=== PATIENT | male | born 1935 | race African-American/Black ===

== ENCOUNTER 2018-02-27 18:50 | Emergency (ER) | payer MEDICARE, OTHER ==
[2018-02-27 19:23] LABS: #Basophils 0.1 thou/uL (0.0-0.2); #Eosinphils 0.2 thou/uL (0.0-0.7); #Lymphocytes 1.6 thou/uL (1.20-3.40); #Monocytes 0.7 thou/uL (0.11-0.59); %Eosinophils 2.8 % (0.0-10.0); %Lymphocytes 24.3 % (21.0-51.0); %Monocytes 10.3 % (0.0-10.0); %Neutrophils 61.6 % (42.0-75.0); Hemoglobin 10.5 g/dL (14.0-18.0); Mean Corpuscular Hemoglobin 27.8 pg (27.0-31.0); Mean Corpuscular Volume 81.6 fL (78.0-98.0); Mean Platelet Volume 6.1 fL (7.4-10.4); Platelet Count 168 thou/uL (130-400); RBC Distribution Width 15.3 % (11.5-14.5); Red Blood Cell (RBC) Count 3.78 mill/uL (4.70-6.10); White Blood Cell (WBC) Count 6.5 thou/uL (4.8-10.8)
[2018-02-27 19:29] LABS: INR-International Normal Ratio 2.1; PTT 41.4 SEC (22.9-36.1); Prothrombin Time 24.4 SEC (12.0-14.7)
== END 2018-02-27 19:40 | disposition home or self-care (01) ==
LOC: BURERS 18:50
DX: D68.9 Coagulation defect, unspecified (principal); R58 Hemorrhage, not elsewhere classified; I10 Essential (primary) hypertension; Z79.01 Long term (current) use of anticoagulants; Z79.899 Other long term (current) drug therapy
CPT/HCPCS: 36415; 85025; 85610; 85730; 99283

== ENCOUNTER 2019-03-29 15:55 | Emergency (ER) | payer MEDICARE, OTHER ==
[2019-03-29 16:41] LABS: #Basophils 0.1 thou/uL (0.0-0.2); #Eosinphils 0.1 thou/uL (0.0-0.7); #Lymphocytes 1.7 thou/uL (1.20-3.40); #Monocytes 0.8 thou/uL (0.11-0.59); #Neutrophils 4.7 thou/uL (1.40-6.50); %Basophils 0.8 % (0.0-1.0); %Eosinophils 1.2 % (0.0-10.0); %Lymphocytes 22.7 % (21.0-51.0); %Monocytes 11.1 % (0.0-10.0); %Neutrophils 64.2 % (42.0-75.0); Mean Corpuscular HGB CONC 30.8 g/dL (32.0-36.0); Mean Corpuscular Hemoglobin 27.7 pg (27.0-31.0); Mean Corpuscular Volume 89.8 fL (78.0-98.0); Mean Platelet Volume 5.7 fL (7.4-10.4); Platelet Count 225 thou/uL (130-400); RBC Distribution Width 15.7 % (11.5-14.5); Red Blood Cell (RBC) Count 4.34 mill/uL (4.70-6.10); White Blood Cell (WBC) Count 7.4 thou/uL (4.8-10.8)
[2019-03-29 16:57] LABS: ALT (SGPT) 32 U/L (8-55); AST (SGOT) 27 U/L (5-34); Albumin 3.8 g/dL (3.4-4.8); Alkaline Phosphatase 89 U/L (40-150); Anion Gap 14 mmol/L (10-20); BUN (Urea Nitrogen) 38 mg/dL (8.4-25.7); Bilirubin, Total 0.4 mg/dL (0.2-1.2); Calc. Creatinine Clearance 0 mL/min (70-130); Calcium 9.3 mg/dL (7.8-10.44); Carbon Dioxide 30 mmol/L (23-31); Chloride 102 mmol/L (98-107); Estimated GFR-MDRD 26; Globulin 3.1 g/dL (2.4-3.5); Glucose 93 mg/dL (83-110); Potassium 4.1 mmol/L (3.5-5.1); Protein, Total 6.9 g/dL (5.8-8.1); Sodium 142 mmol/L (136-145)
--- NOTE | 2019-03-29 17:34 | CT ---
CT HEAD WITHOUT CONTRAST: 03/29/19 INDICATIONS: Fall. Lightheadedness. COMPARISON: 02/07/15. There is moderate cortical volume loss which appears stable. Mild to moderate chronic is chemic white matter changes. No evidence of hemorrhage. No evidence of infarct or mass. IMPRESSION: No acute process. POS: OFF
[2019-03-29 17:51] LABS: Bilirubin Negative (Negative); Blood, Urine Negative (Negative); Clarity Clear (Clear); Glucose, Urine (Dipstick) Negative (Negative); Leukocyte Negative (Negative); Nitrite Negative (Negative); Protein, Urine (Dipstick) Negative (Neg-Trace); Urobilinogen 0.2 mg/dL (Less than 2)
== END 2019-03-29 18:11 | disposition home or self-care (01) ==
LOC: BURERS 15:55
DX: I95.1 Orthostatic hypotension (principal); N18.9 Chronic kidney disease, unspecified; I48.91 Unspecified atrial fibrillation; M10.9 Gout, unspecified; I10 Essential (primary) hypertension; E78.5 Hyperlipidemia, unspecified; Z79.899 Other long term (current) drug therapy
CPT/HCPCS: 36415; 70450; 80053; 81003; 84484; 85025

== ENCOUNTER 2019-04-19 06:50 | Emergency (ER) | payer MEDICARE, OTHER ==
--- NOTE | 2019-04-19 07:55 | CT ---
CT HEAD WITHOUT CONTRAST: INDICATION: Headache. COMPARISON: 03/29/2019 CT head. FINDINGS: Mild cortical volume loss again noted. Mild chronic ischemic white matter changes appear stable. No evidence of mass or hemorrhage. No evidence of acute cortical infarct. No interval change. Sinuse s are clear. IMPRESSION: No acute finding. POS: [facility]
== END 2019-04-19 07:49 | disposition home or self-care (01) ==
LOC: BURERS 06:50
DX: R51 Headache (principal); I10 Essential (primary) hypertension; I48.91 Unspecified atrial fibrillation; E78.2 Mixed hyperlipidemia; M10.9 Gout, unspecified; Z79.899 Other long term (current) drug therapy; Z79.01 Long term (current) use of anticoagulants
CPT/HCPCS: 70450

== ENCOUNTER 2019-07-15 16:15 | Emergency (ER) | payer MEDICARE, OTHER | END 2019-07-15 16:42 | disposition home or self-care (01) | LOC: BURERS 16:15 | DX: M10.9 Gout, unspecified (principal); I48.91 Unspecified atrial fibrillation; E78.5 Hyperlipidemia, unspecified; E78.1 Pure hyperglyceridemia; I47.1 Supraventricular tachycardia; E78.00 Pure hypercholesterolemia, unspecified; Z79.899 Other long term (current) drug therapy; Z79.82 Long term (current) use of aspirin | CPT/HCPCS: 99283 ==

== ENCOUNTER 2019-10-17 14:11 | Emergency (ER) | payer MEDICARE, OTHER ==
[2019-10-17] MEDS ORDERED: Ibuprofen 200 MG TAB ONE (14:28)
[2019-10-17] MEDS ORDERED: predniSONE 20 MG TAB ONE (14:28)
== END 2019-10-17 14:35 | disposition home or self-care (01) ==
LOC: BURERS 14:11
DX: M10.9 Gout, unspecified (principal); J06.9 Acute upper respiratory infection, unspecified; I49.9 Cardiac arrhythmia, unspecified; I48.91 Unspecified atrial fibrillation; E78.2 Mixed hyperlipidemia; I10 Essential (primary) hypertension; Z79.899 Other long term (current) drug therapy; Z79.82 Long term (current) use of aspirin
CPT/HCPCS: 99283; J7512

== ENCOUNTER 2021-03-07 23:58 | Emergency (ER) | payer MEDICARE, OTHER | END 2021-03-08 00:31 | disposition home or self-care (01) | LOC: BURERS 23:58 | DX: M79.81 Nontraumatic hematoma of soft tissue (principal); I49.9 Cardiac arrhythmia, unspecified; I48.91 Unspecified atrial fibrillation; E78.2 Mixed hyperlipidemia; I10 Essential (primary) hypertension; M10.9 Gout, unspecified; Z79.899 Other long term (current) drug therapy | CPT/HCPCS: 99283 ==

== ENCOUNTER 2022-01-06 08:34 | Emergency (ER) | payer MEDICARE, OTHER ==
[2022-01-06] MEDS ORDERED: Furosemide 100 MG/10 ML VIAL ONE (08:59)
[2022-01-06 09:06] LABS: #Basophils 0.1 thou/uL (0.0-0.2); #Eosinphils 0.2 thou/uL (0.0-0.7); #Lymphocytes 1.1 thou/uL (1.20-3.40); #Monocytes 0.9 thou/uL (0.11-0.59); #Neutrophils 4.7 thou/uL (1.40-6.50); %Basophils 0.7 % (0.0-1.0); %Eosinophils 2.7 % (0.0-10.0); %Lymphocytes 16.1 % (21.0-51.0); %Monocytes 12.9 % (0.0-10.0); %Neutrophils 67.6 % (42.0-75.0); Hemoglobin 9.7 g/dL (14.0-18.0); Mean Corpuscular HGB CONC 31.5 g/dL (32.0-36.0); Mean Corpuscular Hemoglobin 26.8 pg (27.0-31.0); Mean Platelet Volume 6.8 fL (7.4-10.4); Platelet Count 179 thou/uL (130-400); RBC Distribution Width 15.4 % (11.5-14.5); Red Blood Cell (RBC) Count 3.61 mill/uL (4.70-6.10)
[2022-01-06 09:24] LABS: ALT (SGPT) 21 U/L (8-55); AST (SGOT) 29 U/L (5-34); Albumin 3.9 g/dL (3.4-4.8); Alkaline Phosphatase 154 U/L (40-110); Anion Gap 15 mmol/L (10-20); BUN (Urea Nitrogen) 43 mg/dL (8.4-25.7); Bilirubin, Total 0.6 mg/dL (0.2-1.2); CK (CPK) 177 U/L (30-200); Calc. Creatinine Clearance 0 mL/min (70-130); Calcium 8.8 mg/dL (7.8-10.44); Carbon Dioxide 24 mmol/L (23-31); Chloride 107 mmol/L (98-107); Globulin 3.2 g/dL (2.4-3.5); Glucose 119 mg/dL (83-110); Potassium 4.5 mmol/L (3.5-5.1); Protein, Total 7.1 g/dL (5.8-8.1); Sodium 141 mmol/L (136-145)
== END 2022-01-06 11:45 | disposition short-term general hospital (02) ==
LOC: BURERS 08:34
DX: I11.0 Hypertensive heart disease with heart failure (principal); I50.9 Heart failure, unspecified; N17.9 Acute kidney failure, unspecified; I48.91 Unspecified atrial fibrillation; E78.2 Mixed hyperlipidemia; M10.9 Gout, unspecified; Z79.01 Long term (current) use of anticoagulants; Z79.899 Other long term (current) drug therapy
CPT/HCPCS: 71045; 80053; 82550; 83880; 84484; 85025; 93005; 94760; 96374; J1940

== ENCOUNTER 2022-01-14 20:31 | Emergency (ER) | payer MEDICARE, OTHER ==
[2022-01-14 20:57] LABS: #Basophils 0.1 thou/uL (0.0-0.2); #Eosinphils 0.2 thou/uL (0.0-0.7); #Lymphocytes 1.1 thou/uL (1.20-3.40); #Monocytes 0.7 thou/uL (0.11-0.59); #Neutrophils 3.9 thou/uL (1.40-6.50); %Eosinophils 2.8 % (0.0-10.0); %Lymphocytes 17.9 % (21.0-51.0); %Monocytes 11.9 % (0.0-10.0); %Neutrophils 66.4 % (42.0-75.0); Hemoglobin 8.9 g/dL (14.0-18.0); Mean Corpuscular HGB CONC 31.8 g/dL (32.0-36.0); Mean Corpuscular Hemoglobin 26.8 pg (27.0-31.0); Mean Corpuscular Volume 84.1 fL (78.0-98.0); Mean Platelet Volume 7.9 fL (7.4-10.4); Platelet Count 142 thou/uL (130-400); RBC Distribution Width 15.3 % (11.5-14.5); Red Blood Cell (RBC) Count 3.32 mill/uL (4.70-6.10); White Blood Cell (WBC) Count 5.9 thou/uL (4.8-10.8)
[2022-01-14 21:10] LABS: ALT (SGPT) 24 U/L (8-55); AST (SGOT) 30 U/L (5-34); Albumin 3.9 g/dL (3.4-4.8); Alkaline Phosphatase 122 U/L (40-110); Anion Gap 16 mmol/L (10-20); BUN (Urea Nitrogen) 40 mg/dL (8.4-25.7); Bilirubin, Total 0.7 mg/dL (0.2-1.2); Calc. Creatinine Clearance 0 mL/min (70-130); Calcium 8.7 mg/dL (7.8-10.44); Carbon Dioxide 27 mmol/L (23-31); Chloride 104 mmol/L (98-107); Globulin 3.4 g/dL (2.4-3.5); Glucose 120 mg/dL (83-110); Potassium 4.3 mmol/L (3.5-5.1); Protein, Total 7.3 g/dL (5.8-8.1); Sodium 143 mmol/L (136-145)
[2022-01-14] MEDS ORDERED: Furosemide 40 MG/4 ML VIAL ONE (21:30)
[2022-01-15 15:09] LABS: SARS-CoV-2 PCR by NAA Not Detected (NotDetected)
== END 2022-01-14 23:55 | disposition short-term general hospital (02) ==
LOC: BURERS 20:31
DX: I11.0 Hypertensive heart disease with heart failure (principal); I50.9 Heart failure, unspecified; I48.91 Unspecified atrial fibrillation; E78.2 Mixed hyperlipidemia; M10.9 Gout, unspecified; Z20.822 Contact with and (suspected) exposure to COVID-19; Z95.0 Presence of cardiac pacemaker; Z79.899 Other long term (current) drug therapy
CPT/HCPCS: 71045; 80053; 83880; 84484 ×2; 85025; 93005; 94760; 96374; 99285; U0003; U0005; 36415; J1940

== ENCOUNTER 2022-03-21 20:59 | Emergency (ER) | payer OTHER, MEDICARE | END 2022-03-21 22:20 | disposition home or self-care (01) | LOC: BURERS 20:59 | DX: S80.02XA Contusion of left knee, initial encounter (principal); E78.5 Hyperlipidemia, unspecified; I10 Essential (primary) hypertension; W19.XXXA Unspecified fall, initial encounter ==

== ENCOUNTER 2022-11-17 11:57 | Emergency (ER) | payer MEDICARE, OTHER ==
[2022-11-17 13:18] LABS: Hemoglobin 11.3 g/dL (14.0-18.0); Mean Corpuscular HGB CONC 32.4 g/dL (32.0-36.0); Mean Corpuscular Volume 83.3 fl (78.0-98.0); Mean Platelet Volume 7.5 fL (7.4-10.4); Platelet Count 142 10x3/uL (130-400); RBC Distribution Width 17.9 % (11.5-14.5); White Blood Cell (WBC) Count 8.7 10x3/uL (4.8-10.8)
[2022-11-17 13:19] LABS: ALT (SGPT) 34 U/L (8-55); AST (SGOT) 52 U/L (5-34); Albumin 3.6 g/dL (3.4-4.8); Alkaline Phosphatase 222 U/L (40-110); Anion Gap 13 mmol/L (10-20); BUN (Urea Nitrogen) 48 mg/dL (8.4-25.7); Bilirubin, Total 1.1 mg/dL (0.2-1.2); Calc. Creatinine Clearance 0 mL/min (70-130); Calcium 8.8 mg/dL (7.8-10.44); Carbon Dioxide 27 mmol/L (23-31); Chloride 104 mmol/L (98-107); Estimated GFR 26; Globulin 3.7 g/dL (2.4-3.5); Glucose 131 mg/dL (83-110); Potassium 3.9 mmol/L (3.5-5.1); Protein, Total 7.3 g/dL (5.8-8.1); Sodium 140 mmol/L (136-145)
[2022-11-17 13:34] LABS: Band 1 % (5-11); Lymphocytes 5 % (21-51); MDiff Complete? YES; Monocytes 14 % (0-10); Neutrophil 77 % (42-75); Reactive Lymphocytes 3 % (0-10)
[2022-11-17] MEDS ORDERED: Lidocaine 1% (PF) 30 ML VIAL ONE (14:00)
[2022-11-17] MEDS ORDERED: Clindamycin 150 MG CAP ONE (14:11)
== END 2022-11-17 14:14 | disposition home or self-care (01) ==
LOC: BURERS 11:57
DX: L03.113 Cellulitis of right upper limb (principal); I48.91 Unspecified atrial fibrillation; E78.2 Mixed hyperlipidemia; I10 Essential (primary) hypertension; M10.9 Gout, unspecified; Z79.899 Other long term (current) drug therapy
CPT/HCPCS: 36415; 80053; 85025; 86140; J2001

== ENCOUNTER 2023-01-16 03:14 | Emergency (ER) | payer MEDICARE, OTHER ==
[2023-01-16] MEDS ORDERED: Dexamethasone 10 MG/ML VIAL ONE (03:44)
== END 2023-01-16 04:11 | disposition home or self-care (01) ==
LOC: BURERS 03:14
DX: M10.9 Gout, unspecified (principal); E78.2 Mixed hyperlipidemia; I10 Essential (primary) hypertension; Z87.891 Personal history of nicotine dependence; Z79.899 Other long term (current) drug therapy
CPT/HCPCS: 96372; 99283; J1100

== ENCOUNTER 2023-07-01 07:48 | Emergency (ER) | payer MEDICARE, OTHER ==
[2023-07-01] MEDS ORDERED: predniSONE 20 MG TAB ONE (08:31)
== END 2023-07-01 08:37 | disposition home or self-care (01) ==
LOC: BURERS 07:48
DX: M10.9 Gout, unspecified (principal); I48.91 Unspecified atrial fibrillation; I10 Essential (primary) hypertension; E78.2 Mixed hyperlipidemia; Z95.0 Presence of cardiac pacemaker; Z79.899 Other long term (current) drug therapy; Z87.891 Personal history of nicotine dependence
CPT/HCPCS: 99283; J7512

== ENCOUNTER 2023-07-20 10:46 | Emergency (ER) | payer MEDICARE, OTHER ==
[2023-07-20 11:22] LABS: Bilirubin Negative (Negative); Blood, Urine Moderate (Negative); Clarity Cloudy (Clear); Glucose, Urine (Dipstick) Negative (Negative); Ketone, Urine Negative (Negative); Leukocyte Large (Negative); Nitrite Negative (Negative); Protein, Urine (Dipstick) 100 mg/dL (Neg-Trace); pH, Urine 5.5 (5.0-9.0)
[2023-07-20 11:28] LABS: Bacteria/HPF 1+ HPF (None Seen); CAUTI Indications for Culture Dysuria,urgency,freq; RBC/HPF 21-50 HPF (0-3); WBC/HPF Greater than 50 HPF (0-3)
[2023-07-20 11:30] LABS: Urine Culture Reflex Yes Yes
[2023-07-20 11:33] LABS: #Eosinphils 0.4 thou/uL (0.0-0.7); #Monocytes 0.5 thou/uL (0.11-0.59); #Neutrophils 4.8 thou/uL (1.40-6.50); %Basophils 0.5 % (0.0-1.0); %Eosinophils 6.4 % (0.0-10.0); %Lymphocytes 14.1 % (21.0-51.0); %Monocytes 7.7 % (0.0-10.0); %Neutrophils 71.3 % (42.0-75.0); Hematocrit 32.7 % (42.0-52.0); Hemoglobin 9.9 g/dL (14.0-18.0); Mean Corpuscular HGB CONC 30.3 g/dL (32.0-36.0); Mean Corpuscular Hemoglobin 25.9 pg (27.0-31.0); Mean Corpuscular Volume 85.4 fl (78.0-98.0); Mean Platelet Volume 7.5 fL (7.4-10.4); Platelet Count 141 10x3/uL (130-400); RBC Distribution Width 17.4 % (11.5-14.5); Red Blood Cell (RBC) Count 3.83 mill/uL (4.70-6.10); White Blood Cell (WBC) Count 6.8 10x3/uL (4.8-10.8)
[2023-07-20] MEDS ORDERED: cefTRIAXone (ROCEPHIN) 1 GM VIAL ONE (11:36)
[2023-07-20] MEDS ORDERED: Lidocaine 1% PF 5 ML VIAL ONE (11:36)
[2023-07-20 11:40] LABS: Prothrombin Time 13.8 sec (12.0-14.7)
[2023-07-20 11:50] LABS: ALT (SGPT) 31 U/L (8-55); AST (SGOT) 67 U/L (5-34); Albumin 3.4 g/dL (3.4-4.8); Alkaline Phosphatase 132 U/L (40-110); Anion Gap 17 mmol/L (10-20); BUN (Urea Nitrogen) 50 mg/dL (8.4-25.7); Calc. Creatinine Clearance 0 mL/min (70-130); Calcium 8.5 mg/dL (7.8-10.44); Carbon Dioxide 25 mmol/L (23-31); Chloride 103 mmol/L (98-107); Estimated GFR 13; Globulin 3.7 g/dL (2.4-3.5); Glucose 86 mg/dL (83-110); Potassium 3.9 mmol/L (3.5-5.1); Protein, Total 7.1 g/dL (5.8-8.1); Sodium 141 mmol/L (136-145)
== END 2023-07-20 12:21 | disposition short-term general hospital (02) ==
LOC: BURERS 10:46
DX: N39.0 Urinary tract infection, site not specified (principal); R22.33 Localized swelling, mass and lump, upper limb, bilateral; E78.2 Mixed hyperlipidemia; I10 Essential (primary) hypertension; Z87.891 Personal history of nicotine dependence; Z79.82 Long term (current) use of aspirin; Z79.899 Other long term (current) drug therapy
CPT/HCPCS: 36415; 80053; 81001; 85025; 85610; 87077; 87086; 87186; 96372; 99284; J0696

== ENCOUNTER 2023-08-02 21:08 | Emergency (ER) | payer OTHER, MEDICARE ==
[2023-08-02 22:07] LABS: #Basophils 0.1 thou/uL (0.0-0.2); #Eosinphils 0.4 thou/uL (0.0-0.7); #Lymphocytes 1.6 thou/uL (1.20-3.40); #Monocytes 0.9 thou/uL (0.11-0.59); %Basophils 1.4 % (0.0-1.0); %Eosinophils 5.4 % (0.0-10.0); %Lymphocytes 23.1 % (21.0-51.0); %Monocytes 12.3 % (0.0-10.0); %Neutrophils 57.9 % (42.0-75.0); Hematocrit 33.1 % (42.0-52.0); Hemoglobin 10.3 g/dL (14.0-18.0); Mean Corpuscular HGB CONC 31.1 g/dL (32.0-36.0); Mean Corpuscular Hemoglobin 26.8 pg (27.0-31.0); Mean Corpuscular Volume 86.1 fl (78.0-98.0); Mean Platelet Volume 7.5 fL (7.4-10.4); Platelet Count 193 10x3/uL (130-400); RBC Distribution Width 18.5 % (11.5-14.5); Red Blood Cell (RBC) Count 3.84 mill/uL (4.70-6.10); White Blood Cell (WBC) Count 6.9 10x3/uL (4.8-10.8)
[2023-08-02 22:11] LABS: INR-International Normal Ratio 1.1; Prothrombin Time 14.4 sec (12.0-14.7)
[2023-08-02 22:19] LABS: ALT (SGPT) 19 U/L (8-55); AST (SGOT) 30 U/L (5-34); Albumin 3.1 g/dL (3.4-4.8); Alkaline Phosphatase 111 U/L (40-110); Anion Gap 17 mmol/L (10-20); BUN (Urea Nitrogen) 38 mg/dL (8.4-25.7); Bilirubin, Total 0.7 mg/dL (0.2-1.2); Calc. Creatinine Clearance 0 mL/min (70-130); Calcium 8.3 mg/dL (7.8-10.44); Carbon Dioxide 28 mmol/L (23-31); Chloride 103 mmol/L (98-107); Estimated GFR 16; Globulin 3.3 g/dL (2.4-3.5); Glucose 155 mg/dL (83-110); Potassium 3.9 mmol/L (3.5-5.1); Protein, Total 6.4 g/dL (5.8-8.1); Sodium 144 mmol/L (136-145)
== END 2023-08-02 23:13 | disposition home or self-care (01) ==
LOC: BURERS 21:08
DX: S06.5X0A Traumatic subdural hemorrhage without loss of consciousness, initial encounter (principal); E78.2 Mixed hyperlipidemia; I10 Essential (primary) hypertension; Z87.891 Personal history of nicotine dependence; Z79.899 Other long term (current) drug therapy; Z79.82 Long term (current) use of aspirin; W01.0XXA Fall on same level from slipping, tripping and stumbling without subsequent striking against object, initial encounter
CPT/HCPCS: 70450; 72125; 80053; 85025; 85610